=== PATIENT | male | born 1985 | race African-American/Black ===

== ENCOUNTER 2022-01-27 21:40 | Emergency (ER) | payer SELFPAY ==
[~2022-01-27] VITALS: Ht 182.9 cm; Wt 86.0 kg
[2022-01-27 21:43] VITALS: BP 147/94
[2022-01-27] MEDS ORDERED: ALBUTEROL (0.083%) 2.5MG/3ML NEB HHN STA (22:45)
[2022-01-27] MEDS ORDERED: IPRATROPIUM BROMIDE (0.02%) 0.5MG/2.5ML NEB HHN STA (22:45)
[2022-01-27] MEDS ORDERED: PREDNISONE 20MG TABLET PO STA (22:45)
[2022-01-28] MEDS ORDERED: ALBU6.7H3 INH (01:10)
[2022-01-28] MEDS ORDERED: P20 MT (01:10)
== END 2022-01-28 02:30 | disposition home or self-care (01) ==
LOC: ER 21:40
DX: J45.901 Unspecified asthma with (acute) exacerbation (principal); R09.81 Nasal congestion; R06.00 Dyspnea, unspecified
CPT/HCPCS: 71045; 93005; 94644; 99285; J7512; Z7610

== ENCOUNTER 2022-05-14 02:49 | Inpatient (IN) | payer BC ==
[~2022-05-14] VITALS: Ht 175.3 cm; Wt 85.3 kg
[2022-05-14] VITALS (71 sets, daily range): BP systolic 67–152; BP diastolic 44–98
[~2022-05-14 02:49] MED LIST: ALBU6.7H3 INH; P20 MT
[2022-05-14] MEDS ORDERED: IPRATROPIUM/ALBUTEROL 0.5-3(2.5)MG/3ML NEB HHN ONE ×2 (03:00→03:45)
[2022-05-14] MEDS ORDERED: DEXAMETHASONE 10 MG/ML VIAL IV ONE (03:00)
[2022-05-14 03:24] LABS: BG BASE EXCESS -3.8 mmol/L (-2.0-2.0); BG CARBOXYHEMOGLOBIN 0.3 % (0.5-1.5); BG DEOXYHEMOGLOBIN 1.1 % (0.0-5.0); BG FRACTION INSPIRED OXYGEN 45; BG HCO3 ACT 26.7 mmol/L (22.0-26.0); BG METHEMOGLOBIN 0.6 % (0.0-1.5); BG OXYGEN SATURATION 98.9 % (92.0-98.5); BG PCO2 71.2 mmHg (35.0-45.0); BG PH 7.192 (7.350-7.450); BG PO2 175.3 mmHg (75.0-100.0); BG SAMPLE SITE RIGHT RADIAL; BG TOTAL HEMOGLOBIN 18.2 g/dL (12.0-18.0); BG VENT MODE MASK - BIPAP
[2022-05-14 03:36] LABS: BASOPHILS % 0.6 % (0.0-2.0); EOSINOPHILS % 2.6 % (0.0-5.0); HEMATOCRIT. 55.1 % (42.0-52.0); HEMOGLOBIN. 18.2 g/dL (14.0-18.0); LYMPHOCYTES % 14.2 % (20.0-50.0); MEAN CORPUSCULAR HEMOGLOBIN 27.8 pg (28.0-32.0); MEAN CORPUSCULAR VOLUME 84.1 fL (80.0-94.0); MEAN PLATELET VOLUME 7.7 fl (7.4-10.4); MONOCYTES % 6.7 % (2.0-8.0); NEUTROPHILS % 75.9 % (40.0-76.0); PLATELET 425 x1000/uL (130-400); RED BLOOD CELL COUNT 6.56 mill/uL (4.7-6.1); RED CELL DISTRIBUTION WIDTH 14.6 % (11.6-14.6)
[2022-05-14 03:45] LABS: CHLORIDE 104 mEq/L (98-107)
[2022-05-14] MEDS ORDERED: KETAMINE HCL 50 MG/ML 10ML IV NR ×2 (04:15)
[2022-05-14] MEDS ORDERED: KETAMINE HCL IV NR ×5 (04:30→04:45)
[2022-05-14] MEDS ORDERED: SODIUM CHLORIDE 0.9% IV NR ×5 (04:30→04:45)
[2022-05-14] MEDS ORDERED: LORAZEPAM 2MG/ML CPJ ONE (04:43)
[2022-05-14] MEDS ORDERED: LORAZEPAM 2MG/ML CPJ IV ONE (04:45)
[2022-05-14] MEDS ORDERED: MIDAZOLAM HCL 2 MG/2 ML VIAL IV ONE (05:00)
[2022-05-14 05:13] LABS: BG CARBOXYHEMOGLOBIN 0.3 % (0.5-1.5); BG DEOXYHEMOGLOBIN 0.4 % (0.0-5.0); BG FRACTION INSPIRED OXYGEN 100; BG HCO3 ACT 28.4 mmol/L (22.0-26.0); BG METHEMOGLOBIN 0.6 % (0.0-1.5); BG OXYGEN SATURATION 99.6 % (92.0-98.5); BG OXYHEMOGLOBIN 98.7 % (94.0-97.0); BG PCO2 105.7 mmHg (35.0-45.0); BG PH 7.047 (7.350-7.450); BG PO2 525.6 mmHg (75.0-100.0); BG SAMPLE SITE RIGHT RADIAL; BG TOTAL HEMOGLOBIN 17.6 g/dL (12.0-18.0); BG VENT MODE VENT - AC
[2022-05-14] MEDS ORDERED: SODIUM CHLORIDE 0.9% IV PRN (05:15)
[2022-05-14] MEDS ORDERED: KETAMINE HCL IV PRN (05:15)
[2022-05-14] MEDS ORDERED: PROPOFOL 200MG/20ML VIAL IV ONE (05:15)
[2022-05-14] MEDS ORDERED: METHYLPREDNISOLONE SOD SUCC 125 MG/2 ML VIAL IV NR (06:15)
[2022-05-14] MEDS ORDERED: MIDAZOLAM HCL 100 MG in DEXT 5% WATER 80 ML IV ONE (06:15)
[2022-05-14] MEDS ORDERED: IPRATROPIUM/ALBUTEROL 0.5-3(2.5)MG/3ML NEB HHN NR (06:15)
[2022-05-14] MEDS ORDERED: METHYLPREDNISOLONE SOD SUCC 125 MG/2 ML VIAL IV SCH (06:30)
[2022-05-14] MEDS ORDERED: MAGNESIUM 2 G PREMIX 50 ML IV NR (06:30)
[2022-05-14] MEDS ORDERED: ONDANSETRON HCL 4MG/2ML INJ IV PRN (06:30)
[2022-05-14] MEDS ORDERED: FENTANYL 2500MCG/250ML PMX 250 ML IV ONE (06:30)
[2022-05-14] MEDS ORDERED: DEXT 5%/0.45% NACL KCL 30MEQ/L 1,000 ML IV SCH (06:45)
[2022-05-14] MEDS ORDERED: FENTANYL CITRATE 2,500 MCG in SODIUM CHLORIDE 0.9% 200 ML IV PRN (06:45)
[2022-05-14] MEDS ORDERED: SODIUM BICARBONATE 8.4% 1 MEQ/ML 50ML SYR IV NR (07:15)
[2022-05-14] MEDS: PROPOFOL 10MG/ML 100ML 100 ML IV SCH ×4 (07:36→19:34)
[2022-05-14] MEDS ORDERED: NOREPINEPHRINE 8 MG in DEXT 5% WATER 242 ML IV PRN (08:15)
[2022-05-14] MEDS ORDERED: DEXT 5%/0.45% NACL KCL 20MEQ/L 1,000 ML IV SCH (08:30)
[2022-05-14 08:48] LABS: BG BASE EXCESS -2.5 mmol/L (-2.0-2.0); BG CARBOXYHEMOGLOBIN 0.6 % (0.5-1.5); BG DEOXYHEMOGLOBIN 2.1 % (0.0-5.0); BG FRACTION INSPIRED OXYGEN 40; BG HCO3 ACT 24.8 mmol/L (22.0-26.0); BG METHEMOGLOBIN 0.4 % (0.0-1.5); BG OXYGEN SATURATION 97.9 % (92.0-98.5); BG OXYHEMOGLOBIN 96.9 % (94.0-97.0); BG PCO2 52.1 mmHg (35.0-45.0); BG PH 7.295 (7.350-7.450); BG PO2 108.2 mmHg (75.0-100.0); BG SAMPLE SITE LEFT RADIAL; BG TOTAL HEMOGLOBIN 15.8 g/dL (12.0-18.0); BG TOTAL RESPIRATORY RATE 31 b/min; BG VENT MODE VENT - AC
[2022-05-14] MEDS: PANTOPRAZOLE SODIUM 40 MG/VIAL IV SCH (08:56)
[2022-05-14 10:26] LABS: HEMATOCRIT. 43.3 % (42.0-52.0); HEMOGLOBIN. 14.5 g/dL (14.0-18.0); MEAN CORPUSCULAR HEMOGLOBIN 27.5 pg (28.0-32.0); MEAN CORPUSCULAR VOLUME 82.3 fL (80.0-94.0); MEAN PLATELET VOLUME 7.2 fl (7.4-10.4); PLATELET 356 x1000/uL (130-400); RED BLOOD CELL COUNT 5.27 mill/uL (4.7-6.1); RED CELL DISTRIBUTION WIDTH 14.4 % (11.6-14.6)
[2022-05-14] MEDS ORDERED: LORAZEPAM 2MG/ML CPJ IV PRN (10:45)
[2022-05-14 10:51] LABS: CHLORIDE 105 mEq/L (98-107)
[2022-05-14 11:13] LABS: PLATELET ESTIMATE NORMAL
[2022-05-14] MEDS: ENOXAPARIN 40MG/0.4ML SYR SUBCUT SCH (11:37)
[2022-05-14] MEDS: METHYLPREDNISOLONE SOD SUCC 40 MG/ML VIAL IV SCH ×2 (13:15→21:26)
[2022-05-14 14:27] LABS: *AMPHETAMINES SCREEN URINE NEGATIVE (NEGATIVE); *BARBITURATES SCREEN URINE NEGATIVE (NEGATIVE); *BENZODIAZEPINES SCREEN URINE PRESUMTIVE POSITIVE (NEGATIVE); *COCAINE SCREEN URINE NEGATIVE (NEGATIVE); CANNABINOID URINE SCREEN NEGATIVE (NEGATIVE); METHADONE URINE SCREEN NEGATIVE (NEGATIVE); OPIATES URINE SCREEN NEGATIVE (NEGATIVE); PHENCYCLIDINE URINE SCREEN NEGATIVE (NEGATIVE)
[2022-05-14] MEDS ORDERED: ETOMIDATE 2MG/ML 10ML VIAL IV ONE (15:39)
[2022-05-14] MEDS ORDERED: SUCCINYLCHOLINE CHLORIDE 200MG/10ML IV ONE (15:39)
[2022-05-14] MEDS: DEXT 5%/0.45% NACL 1000ML 1,000 ML IV SCH (16:59)
[2022-05-15] VITALS (47 sets, daily range): BP systolic 82–146; BP diastolic 52–93
[2022-05-15] MEDS: DEXT 5%/0.45% NACL 1000ML 1,000 ML IV SCH ×3 (02:29→18:16)
[2022-05-15] MEDS: PROPOFOL 10MG/ML 100ML 100 ML IV SCH (04:36)
[2022-05-15] MEDS: IPRATROPIUM/ALBUTEROL 0.5-3(2.5)MG/3ML NEB HHN SCH ×5 (04:37→20:12)
[2022-05-15] MEDS: METHYLPREDNISOLONE SOD SUCC 40 MG/ML VIAL IV SCH ×3 (05:10→21:03)
[2022-05-15 05:15] LABS: HEMATOCRIT. 38.3 % (42.0-52.0); HEMOGLOBIN. 12.4 g/dL (14.0-18.0); MEAN CORPUSCULAR HEMOGLOBIN 27.8 pg (28.0-32.0); MEAN CORPUSCULAR VOLUME 85.8 fL (80.0-94.0); MEAN PLATELET VOLUME 7.5 fl (7.4-10.4); PLATELET 320 x1000/uL (130-400); RED BLOOD CELL COUNT 4.46 mill/uL (4.7-6.1); RED CELL DISTRIBUTION WIDTH 14.6 % (11.6-14.6)
[2022-05-15 07:13] LABS: PLATELET ESTIMATE NORMAL
[2022-05-15] MEDS ORDERED: IPRATROPIUM/ALBUTEROL 0.5-3(2.5)MG/3ML NEB HHN SCH (08:00)
[2022-05-15 08:38] LABS: BG BASE EXCESS -1.8 mmol/L (-2.0-2.0); BG CARBOXYHEMOGLOBIN 0.9 % (0.5-1.5); BG DEOXYHEMOGLOBIN 3.2 % (0.0-5.0); BG FRACTION INSPIRED OXYGEN 40; BG HCO3 ACT 22.5 mmol/L (22.0-26.0); BG METHEMOGLOBIN 0.4 % (0.0-1.5); BG OXYGEN SATURATION 96.8 % (92.0-98.5); BG OXYHEMOGLOBIN 95.5 % (94.0-97.0); BG PCO2 37.3 mmHg (35.0-45.0); BG PH 7.399 (7.350-7.450); BG PO2 89.5 mmHg (75.0-100.0); BG SAMPLE SITE RIGHT RADIAL; BG TOTAL HEMOGLOBIN 14.5 g/dL (12.0-18.0); BG VENT MODE VENT - AC
[2022-05-15] MEDS ORDERED: IPRATROPIUM/ALBUTEROL 0.5-3(2.5)MG/3ML NEB HHN PRN (09:45)
[2022-05-15 09:49] LABS: CHLORIDE 104 mEq/L (98-107)
[2022-05-15] MEDS: PANTOPRAZOLE SODIUM 40 MG/VIAL IV SCH (11:18)
[2022-05-15] MEDS: ENOXAPARIN 40MG/0.4ML SYR SUBCUT SCH (14:00)
[2022-05-15] MEDS: CEFTRIAXONE 1GM PREMIX 50 ML IV SCH (14:03)
[2022-05-15] MEDS ORDERED: AZITHROMYCIN 500MG/250ML 250 ML IV SCH (15:00)
[2022-05-15] MEDS ORDERED: ALBU6.7H3 INH (21:07)
[2022-05-15] MEDS ORDERED: P20 MT (21:07)
[2022-05-15] MEDS ORDERED: FLUT1DIS3 INH (21:07)
[2022-05-16] VITALS (18 sets, daily range): BP systolic 122–144; BP diastolic 66–96
[2022-05-16] MEDS: IPRATROPIUM/ALBUTEROL 0.5-3(2.5)MG/3ML NEB HHN SCH ×5 (00:19→16:20)
[2022-05-16 05:52] LABS: HEMATOCRIT. 44.9 % (42.0-52.0); HEMOGLOBIN. 14.7 g/dL (14.0-18.0); MEAN CORPUSCULAR HEMOGLOBIN 27.5 pg (28.0-32.0); MEAN PLATELET VOLUME 7.7 fl (7.4-10.4); PLATELET 325 x1000/uL (130-400); RED BLOOD CELL COUNT 5.35 mill/uL (4.7-6.1); RED CELL DISTRIBUTION WIDTH 14.6 % (11.6-14.6)
[2022-05-16 05:59] LABS: CHLORIDE 105 mEq/L (98-107)
[2022-05-16] MEDS: METHYLPREDNISOLONE SOD SUCC 40 MG/ML VIAL IV SCH ×3 (06:27→22:04)
[2022-05-16] MEDS: PANTOPRAZOLE SODIUM 40 MG/VIAL IV SCH (08:37)
[2022-05-16 09:40] LABS: PLATELET ESTIMATE NORMAL
[2022-05-16] MEDS: ENOXAPARIN 40MG/0.4ML SYR SUBCUT SCH (12:28)
[2022-05-16] MEDS: CEFTRIAXONE 1GM PREMIX 50 ML IV SCH (14:26)
[2022-05-16] MEDS: AZITHROMYCIN 500MG in DEXTROSE 5% WATER 250ML IV SCH (14:26)
[2022-05-16] MEDS: ALBUTEROL (0.083%) 2.5MG/3ML NEB HHN SCH (21:00)
[2022-05-16] MEDS: IPRATROPIUM BROMIDE (0.02%) 0.5MG/2.5ML NEB HHN SCH (21:00)
[2022-05-16] MEDS ORDERED: IPRATROPIUM BROMIDE (0.02%) 0.5MG/2.5ML NEB HHN PRN (21:30)
[2022-05-16] MEDS ORDERED: ALBUTEROL (0.083%) 2.5MG/3ML NEB HHN PRN (21:30)
[2022-05-17] VITALS: BP 124/71
[2022-05-17] MEDS: IPRATROPIUM BROMIDE (0.02%) 0.5MG/2.5ML NEB HHN SCH ×5 (00:57→14:09)
[2022-05-17] MEDS: ALBUTEROL (0.083%) 2.5MG/3ML NEB HHN SCH ×4 (00:58→14:09)
[2022-05-17 04:00] VITALS: BP 134/94
[2022-05-17] MEDS: METHYLPREDNISOLONE SOD SUCC 40 MG/ML VIAL IV SCH ×2 (05:53→14:18)
[2022-05-17 06:54] LABS: HEMOGLOBIN. 14.5 g/dL (14.0-18.0); MEAN CORPUSCULAR HEMOGLOBIN 27.3 pg (28.0-32.0); MEAN CORPUSCULAR VOLUME 82.5 fL (80.0-94.0); MEAN PLATELET VOLUME 7.5 fl (7.4-10.4); PLATELET 357 x1000/uL (130-400); RED BLOOD CELL COUNT 5.33 mill/uL (4.7-6.1); RED CELL DISTRIBUTION WIDTH 14.2 % (11.6-14.6)
[2022-05-17 07:09] LABS: CHLORIDE 104 mEq/L (98-107)
[2022-05-17 08:00] VITALS: BP 131/84
[2022-05-17 08:50] LABS: BG BASE EXCESS -1.2 mmol/L (-2.0-2.0); BG CARBOXYHEMOGLOBIN 0.7 % (0.5-1.5); BG DEOXYHEMOGLOBIN 7.2 % (0.0-5.0); BG FRACTION INSPIRED OXYGEN 21; BG HCO3 ACT 22.6 mmol/L (22.0-26.0); BG METHEMOGLOBIN 0.1 % (0.0-1.5); BG OXYGEN SATURATION 92.7 % (92.0-98.5); BG PCO2 35.3 mmHg (35.0-45.0); BG PH 7.424 (7.350-7.450); BG PO2 67.6 mmHg (75.0-100.0); BG SAMPLE SITE RIGHT BRACHIAL; BG TOTAL HEMOGLOBIN 15.2 g/dL (12.0-18.0); BG VENT MODE ROOM AIR
[2022-05-17] MEDS: PANTOPRAZOLE SODIUM 40 MG/VIAL IV SCH (08:52)
[2022-05-17 12:00] VITALS: BP 148/82
[2022-05-17 14:07] LABS: PLATELET ESTIMATE NORMAL
[2022-05-17] MEDS: CEFTRIAXONE 1GM PREMIX 50 ML IV SCH (14:18)
[2022-05-17] MEDS: ENOXAPARIN 40MG/0.4ML SYR SUBCUT SCH (14:21)
[2022-05-17] MEDS ORDERED: AZIT250T12 MT (14:42)
[2022-05-17] MEDS: AZITHROMYCIN 500MG in DEXTROSE 5% WATER 250ML IV SCH (15:05)
[2022-05-17] MEDS ORDERED: FAMOTIDINE 20MG TABLET PO SCH (17:00)
== END 2022-05-17 17:00 | disposition home or self-care (01) | DRG 208 ==
LOC: ER 02:49 → CVICU 03:29 → EDBEDREQSVC 04:21 → EDBEDREQTM 04:21 → 6EST 05-16 17:14
PROVIDERS: ADMIT Internal Medicine; ATTEND Internal Medicine
PROC: 5A1945Z Respiratory Ventilation, 24-96 Consecutive Hours (ICD-10-PCS; principal; 2022-05-14)
PROC: 0BH17EZ Insertion of Endotracheal Airway into Trachea, Via Natural or Artificial Opening (ICD-10-PCS; 2022-05-14)
PROC: 5A09357 Assistance with Respiratory Ventilation, Less than 24 Consecutive Hours, Continuous Positive Airway Pressure (ICD-10-PCS; 2022-05-14)
DX: J96.01 Acute respiratory failure with hypoxia (principal); J14 Pneumonia due to Hemophilus influenzae; J45.901 Unspecified asthma with (acute) exacerbation; E87.1 Hypo-osmolality and hyponatremia; E87.29 Other acidosis; J96.02 Acute respiratory failure with hypercapnia; T38.0X5A Adverse effect of glucocorticoids and synthetic analogues, initial encounter; I95.9 Hypotension, unspecified; R73.9 Hyperglycemia, unspecified; D72.829 Elevated white blood cell count, unspecified; Z88.2 Allergy status to sulfonamides; Y92.89 Other specified places as the place of occurrence of the external cause
CPT/HCPCS: 31500; 36415; 36600; 71045; 80048; 80053; 80305; 82375; 82805; 83036; 83605; 83735; 83880; 84145; 84478; 84484; 85025; 87070; 94002; 94003; 94640; 94660; 99291; C9113; J0330; J0456; J0696; J1100; J1650; J2060; J2250; J2704; J2920; J2930; J3475; J3490; J7030; J7050; J7060; A4315

== ENCOUNTER 2022-06-28 10:40 | Emergency (ER) | payer BC ==
[~2022-06-28] VITALS: Ht 182.9 cm; Wt 84.0 kg
[~2022-06-28 10:40] MED LIST changes: +AZIT250T12 MT; +FLUT1DIS3 INH
[2022-06-28] MEDS ORDERED: IPRATROPIUM/ALBUTEROL 0.5-3(2.5)MG/3ML NEB HHN ONE (11:15)
[2022-06-28] MEDS ORDERED: METHYLPREDNISOLONE SOD SUCC 125 MG/2 ML VIAL IV ONE (11:15)
[2022-06-28] MEDS ORDERED: MAGNESIUM 2 G PREMIX 50 ML IV ONE (11:15)
[2022-06-28 11:19] LABS: BASOPHILS % 0.7 % (0.0-2.0); EOSINOPHILS % 6.4 % (0.0-5.0); HEMOGLOBIN. 17.5 g/dL (14.0-18.0); LYMPHOCYTES % 12.5 % (20.0-50.0); MEAN CORPUSCULAR HEMOGLOBIN 27.9 pg (28.0-32.0); MEAN CORPUSCULAR VOLUME 82.8 fL (80.0-94.0); MEAN PLATELET VOLUME 7.3 fl (7.4-10.4); MONOCYTES % 6.1 % (2.0-8.0); NEUTROPHILS % 74.3 % (40.0-76.0); PLATELET 442 x1000/uL (130-400); RED BLOOD CELL COUNT 6.27 mill/uL (4.7-6.1); RED CELL DISTRIBUTION WIDTH 14.4 % (11.6-14.6)
[2022-06-28 11:30] LABS: CHLORIDE 102 mEq/L (98-107)
[2022-06-28 12:35] LABS: INR 1.1; PROTHROMBIN TIME 11.5 sec (9.6-11.0)
[2022-06-28] MEDS ORDERED: ALBU6.7H3 INH (13:02)
[2022-06-28] MEDS ORDERED: ALBU05 NEB (13:02)
[2022-06-28] MEDS ORDERED: P50 MT (13:02)
[2022-06-28 13:15] VITALS: BP 124/82
== END 2022-06-28 13:20 | disposition home or self-care (01) ==
LOC: ER 10:40
DX: J45.901 Unspecified asthma with (acute) exacerbation (principal); Z20.822 Contact with and (suspected) exposure to COVID-19; Z98.890 Other specified postprocedural states
CPT/HCPCS: 36415; 71045; 80053; 84484; 85025; 85610; 87426; 93005; 94640; 96365; 96366; 96375; 99285; C9803; J2930; J3475; Z7610

== ENCOUNTER 2022-07-11 03:09 | Emergency (ER) | payer BC ==
[~2022-07-11] VITALS: Ht 182.9 cm; Wt 87.0 kg
[~2022-07-11 03:09] MED LIST changes: +ALBU05 NEB; +P50 MT
[2022-07-11] MEDS ORDERED: IPRATROPIUM BROMIDE (0.02%) 0.5MG/2.5ML NEB HHN STA ×2 (03:39→05:24)
[2022-07-11] MEDS ORDERED: METHYLPREDNISOLONE SOD SUCC 125 MG/2 ML VIAL IV STA (03:39)
[2022-07-11] MEDS ORDERED: MAGNESIUM 2 G PREMIX 50 ML IV STA (03:39)
[2022-07-11] MEDS ORDERED: ALBUTEROL (0.083%) 2.5MG/3ML NEB HHN STA ×2 (03:39→05:24)
[2022-07-11 04:41] LABS: BASOPHILS % 0.5 % (0.0-2.0); EOSINOPHILS % 6.6 % (0.0-5.0); HEMATOCRIT. 50.2 % (42.0-52.0); HEMOGLOBIN. 16.5 g/dL (14.0-18.0); LYMPHOCYTES % 15.5 % (20.0-50.0); MEAN CORPUSCULAR HEMOGLOBIN 27.3 pg (28.0-32.0); MEAN CORPUSCULAR VOLUME 82.8 fL (80.0-94.0); MEAN PLATELET VOLUME 7.6 fl (7.4-10.4); MONOCYTES % 9.2 % (2.0-8.0); NEUTROPHILS % 68.2 % (40.0-76.0); PLATELET 407 x1000/uL (130-400); RED BLOOD CELL COUNT 6.05 mill/uL (4.7-6.1); RED CELL DISTRIBUTION WIDTH 14.4 % (11.6-14.6)
[2022-07-11 04:47] LABS: CHLORIDE 106 mEq/L (98-107)
[2022-07-11 04:49] LABS: PARTIAL THROMBOPLASTIN TIME 28.5 sec (23.4-31.0); PROTHROMBIN TIME 10.9 sec (9.6-11.0)
[2022-07-11 05:30] VITALS: BP 143/93
[2022-07-11] MEDS ORDERED: ALBU6.7H3 INH (05:44)
[2022-07-11] MEDS ORDERED: P20 MT (05:44)
== END 2022-07-11 06:35 | disposition home or self-care (01) ==
LOC: ER 03:09
DX: J45.901 Unspecified asthma with (acute) exacerbation (principal); I49.9 Cardiac arrhythmia, unspecified
CPT/HCPCS: 36415; 71045; 80053; 84484; 85025; 85610; 85730; 93005; 94640; 94644; 96365; 96375; 99285; J2930; J3475; Z7610